=== PATIENT | female | born 1940 | race Caucasian/White ===

== ENCOUNTER → 2016-06-06 | Outpatient (CLI) | payer MEDICARE, OTHER ==
[~2016-06-06] MED LIST: ALDACTONE25 MG PO; ANASTROZOLE1 MG PO; ASPIR 8181 MG PO; CATAPRES 0.1MG0.1 MG PO; CORDARONE 200M200 MG PO; HYDRALAZINE HCL50 MG PO; LEVOTHYROXINE125 MCG PO; LORTAB 5-325 M1 EACH PO; NORVASC 5 MG TAB5 MG PO; PRADAXA 75 MG C75 MG PO; VITAMIN D250000 UNIT PO
== END ==
LOC: LAB 12:20
PROVIDERS: Internal Medicine Nephrology
DX: N18.3 Chronic kidney disease, stage 3 (moderate) (principal); M62.82 Rhabdomyolysis; E03.9 Hypothyroidism, unspecified
CPT/HCPCS: 36415; 80053; 82043; 82550; 82570; 84443; 89050

== ENCOUNTER 2016-07-14 07:43 | Emergency (ER) | payer MEDICARE, OTHER ==
[2016-07-14 08:42] LABS: HEMOGLOBIN 10.3 gm/dl (12.3-15.3); RED BLOOD COUNT 3.86 M/UL (4.00-5.10); WHITE BLOOD COUNT 5.6 K/UL (4.5-11.0)
== END 2016-07-14 15:05 | disposition home or self-care (01) ==
LOC: ER1 07:43
PROVIDERS: Physician Assistant
DX: R06.00 Dyspnea, unspecified (principal); R00.1 Bradycardia, unspecified; I48.91 Unspecified atrial fibrillation; I10 Essential (primary) hypertension; Z85.3 Personal history of malignant neoplasm of breast; Z90.49 Acquired absence of other specified parts of digestive tract; Z79.82 Long term (current) use of aspirin; Z79.899 Other long term (current) drug therapy
CPT/HCPCS: 36415; 71010; 80053; 82550; 82553; 83874; 83880; 84484; 85025; 93005; 99285

== ENCOUNTER 2020-05-22 09:54 | Outpatient (CLI) | payer MEDICARE, OTHER ==
[~2020-05-22 09:54] MED LIST changes: +ELIQUIS5 MG PO; +HYGROTON TAB 2525 MG PO; +LIVALO2 MG PO; +MELATONIN10 M2 PO; +PROTONIX40 MG PO; +TYLENOL 325MG325 MG PO
[2020-05-22 18:01] LABS: HEMOGLOBIN 8.9 gm/dl (12.3-15.3); RED BLOOD COUNT 3.66 M/UL (4.00-5.10); WHITE BLOOD COUNT 7.4 K/UL (4.5-11.0)
== END 2020-05-22 18:07 | disposition home or self-care (01) ==
LOC: OPSV 09:54
PROVIDERS: Internal Medicine
DX: D64.9 Anemia, unspecified (principal)
CPT/HCPCS: 36415; 36430; 85014; 85018; 85027; 86850; 86900; 86901; 86920; J7050; P9016

== ENCOUNTER → 2020-08-11 | Outpatient (CLI) | payer MEDICARE, OTHER | LOC: HEART 5 15:14 | DX: I48.91 Unspecified atrial fibrillation (principal); R42 Dizziness and giddiness ==

== ENCOUNTER → 2020-08-31 | Outpatient (CLI) | payer MEDICARE, OTHER ==
[2020-08-31 11:07] LABS: HEMOGLOBIN 7.2 gm/dl (12.3-15.3)
== END ==
LOC: OPSV 10:24
PROVIDERS: Internal Medicine
DX: D64.9 Anemia, unspecified (principal); I50.32 Chronic diastolic (congestive) heart failure
CPT/HCPCS: 36415; 36430; 85014; 85018; 86850; 86900; 86901; 86920; J7050; P9016

== ENCOUNTER → 2020-09-04 | Outpatient (CLI) | payer MEDICARE, OTHER | LOC: ECHO 09:36 | DX: I48.91 Unspecified atrial fibrillation (principal); I08.3 Combined rheumatic disorders of mitral, aortic and tricuspid valves; I27.20 Pulmonary hypertension, unspecified | CPT/HCPCS: ECHO; 93306 ==

== ENCOUNTER → 2020-09-04 | Outpatient (CLI) | payer MEDICARE, OTHER ==
[2020-09-04 13:08] LABS: RED BLOOD COUNT 4.17 M/UL (4.00-5.10); WHITE BLOOD COUNT 7.3 K/UL (4.5-11.0)
[2020-09-04 13:09] LABS: HEMOGLOBIN 9.8 gm/dl (12.3-15.3)
== END ==
LOC: LAB 12:28
PROVIDERS: Internal Medicine
DX: R58 Hemorrhage, not elsewhere classified (principal)
CPT/HCPCS: 36415; 85025

== ENCOUNTER 2020-10-15 00:20 | Emergency (ER) | payer MEDICARE, OTHER ==
[2020-10-15 01:10] LABS: HEMOGLOBIN 8.9 gm/dl (12.3-15.3); RED BLOOD COUNT 3.86 M/UL (4.00-5.10); WHITE BLOOD COUNT 6.1 K/UL (4.5-11.0)
[2020-10-15 01:37] LABS: BUN/CREATININE RATIO 14 (0-10)
[2020-10-15] MEDS ORDERED: LASIX TAB 20 MG20 MG PO (06:20)
== END 2020-10-15 06:26 | disposition home or self-care (01) ==
LOC: ER1 00:20
PROVIDERS: Physician Assistant
DX: E87.70 Fluid overload, unspecified (principal); R60.0 Localized edema; I50.9 Heart failure, unspecified; I48.91 Unspecified atrial fibrillation; Z90.49 Acquired absence of other specified parts of digestive tract
CPT/HCPCS: 71045; 80053; 81001; 82550; 82553; 83874; 83880; 84484; 85025; 93005; 96374; 99284; J1940

== ENCOUNTER → 2020-10-26 | Outpatient (CLI) | payer MEDICARE, OTHER ==
[~2020-10-26] MED LIST changes: +LASIX TAB 20 MG20 MG PO
== END ==
LOC: HEART 5 09:18
DX: R06.02 Shortness of breath (principal); I27.20 Pulmonary hypertension, unspecified; R94.2 Abnormal results of pulmonary function studies; Z79.899 Other long term (current) drug therapy
CPT/HCPCS: 94060; 94729

== ENCOUNTER → 2020-11-26 | Outpatient (CLI) | payer MEDICARE, OTHER ==
[2020-11-26 12:29] LABS: HEMOGLOBIN 7.4 gm/dl (12.3-15.3)
== END ==
LOC: OPSV 10:55
PROVIDERS: Internal Medicine
DX: D50.0 Iron deficiency anemia secondary to blood loss (chronic) (principal)
CPT/HCPCS: 36415; 36430; 85014; 85018; 86850; 86900; 86901; 86920; J7050; P9016

== ENCOUNTER 2021-01-16 12:10 | Inpatient (IN) | payer MEDICARE, OTHER ==
[~2021-01-16] VITALS: Ht 160 cm; Wt 79.4 kg
[2021-01-16 12:50] LABS: HEMOGLOBIN 12.9 gm/dl (12.3-15.3); RED BLOOD COUNT 4.43 M/UL (4.00-5.10); WHITE BLOOD COUNT 6.9 K/UL (4.5-11.0)
[2021-01-16] MEDS ORDERED: ELIQUIS2.5 MG PO (16:21)
[2021-01-16] MEDS ORDERED: NEXLIZET 180-11 EACH PO (16:21)
[2021-01-16] MEDS ORDERED: LEVOTHYROXINE112 MCG PO (16:22)
[2021-01-16] MEDS ORDERED: CARDIZEM 60MG T60 MG PO (16:23)
[2021-01-16] MEDS ORDERED: AMIODARONE HCL200 MG PO (16:23)
[2021-01-16] MEDS ORDERED: FERROUS SULFAT325 M2 PO (16:24)
[2021-01-16] MEDS ORDERED: CLOBETASOL PROP50 ML TOP (16:26)
[2021-01-16] MEDS ORDERED: NIZORAL 2% CREA15 GM TOP (16:27)
[2021-01-16] MEDS ORDERED: KETOCONAZOLE120 ML TOP (16:29)
[2021-01-17 08:33] LABS: HEMOGLOBIN 11.8 gm/dl (12.3-15.3); RED BLOOD COUNT 4.17 M/UL (4.00-5.10); WHITE BLOOD COUNT 6.3 K/UL (4.5-11.0)
[2021-01-17 09:15] LABS: BUN/CREATININE RATIO 13 (0-10)
[2021-01-18 07:36] LABS: HEMOGLOBIN 12.8 gm/dl (12.3-15.3); RED BLOOD COUNT 4.48 M/UL (4.00-5.10); WHITE BLOOD COUNT 7.6 K/UL (4.5-11.0)
[2021-01-18 11:15] LABS: ADENOVIRUS F 40/41 Not Detected (Negative); ASTROVIRUS Not Detected (Negative); CAMPYLOBACTER Not Detected (Negative); CRYPTOSPORIDIUM Not Detected (Negative); E.COLI 0157 Not Detected (Negative); ENTAMOEBA HISTOLYTICA Not Detected (Negative); ENTEROAGGREGATIVE E.COLI (EAEC Not Detected (Negative); ENTEROPATHOGENIC E.COLI (EPEC) Not Detected (Negative); ENTEROTOXIGENIC E.COLI (ETEC) Not Detected (Negative); GIARDIA LAMBLIA Not Detected (Negative); NOROVIRUS GI/GII Not Detected (Negative); PLESIOMONAS SHIGELLOIDES Not Detected (Negative); ROTOVIRUS A Not Detected (Negative); SALMONELLA Not Detected (Negative); SAPOVIRUS Not Detected (Negative); SHIG/ENTEROINVAS.ECOLI (EIEC) Not Detected (Negative); SHIGA-LIK TOX.PRO.E.COLI (STEC Not Detected (Negative); VIBRIO Not Detected (Negative); VIBRIO CHOLERAE Not Detected (Negative); YERSINIA ENTEROCOLITICA Not Detected (Negative)
[2021-01-18 14:05] LABS: CLOSTRIDIUM DIFFICILE TOX A/B DETECTED (Negative)
[2021-01-18 14:07] LABS: HEMOGLOBIN 11.9 gm/dl (12.3-15.3)
[2021-01-19 03:57] LABS: WHITE BLOOD COUNT 6.2 K/UL (4.5-11.0)
[2021-01-19 04:00] LABS: RED BLOOD COUNT 3.48 M/UL (4.00-5.10)
[2021-01-19 15:13] LABS: HEMOGLOBIN 12.2 gm/dl (12.3-15.3)
[2021-01-20 04:32] LABS: HEMOGLOBIN 10.7 gm/dl (12.3-15.3); RED BLOOD COUNT 3.69 M/UL (4.00-5.10); WHITE BLOOD COUNT 7.1 K/UL (4.5-11.0)
[2021-01-21 10:03] LABS: HEMOGLOBIN 9.6 gm/dl (12.3-15.3); RED BLOOD COUNT 3.37 M/UL (4.00-5.10); WHITE BLOOD COUNT 6.6 K/UL (4.5-11.0)
[2021-01-21] MEDS ORDERED: VANCOMYCIN HCL250 MG PO (10:05)
--- NOTE | 2021-01-21 15:58 | NUR ---
SPOKE WITH MIMI GUNTER LONG AFTER PATIENT DISCHARGE. INSTRUCTIONS GIVEN TO PATIENT. DAUGHTER STAYING WITH PATIENT HAD LEFT THE ROOM AND DID NOT WAIT FOR INSTRUCTIONS. LYRIC CONCERNED OVER MED CHANGES BY DR. SCHUMACHER. INSTRUCTED LYRIC TO SPEAK WITH DR. SCHUMACHER REGARDING HOME MEDS VS HOSPITAL MEDS. DAUGHTER LYRIC CONCERNED OVER PRE-CERT FOR VANCOMYCIN. INSTRUCTED UNAWARE OF PRE-CERT NEEDED. NO ASSOCIATE PROGRAMMER ANALYST INVOLVED WITH DISCHARGE. ATTEMPTED TO EXPLAIN TO MIMI GUNTER, MEDS LISTED, LYRIC THEN INFORMED NURSE SHE HAS NOT SEEN DISCHARGE INSTRUCTIONS. MIMI GUNTER LONG UPSET AT NURSE, COULD NOT APPEASE HER. LATE ENTRY :
== END 2021-01-21 14:42 | disposition home or self-care (01) | DRG 194 ==
LOC: ER1 12:10 → PROG CARE 15:03 → CDU 15:03 → PROG CARE 16:22
PROVIDERS: Emergency Medicine; Internal Medicine; Nurse Practitioner; ADMIT Internal Medicine
DX: J15.9 Unspecified bacterial pneumonia (principal); N17.9 Acute kidney failure, unspecified; I13.0 Hypertensive heart and chronic kidney disease with heart failure and stage 1 through stage 4 chronic kidney disease, or unspecified chronic kidney disease; I50.22 Chronic systolic (congestive) heart failure; I42.9 Cardiomyopathy, unspecified; K92.2 Gastrointestinal hemorrhage, unspecified; A04.72 Enterocolitis due to Clostridium difficile, not specified as recurrent; Z20.822 Contact with and (suspected) exposure to COVID-19; M25.562 Pain in left knee; E87.6 Hypokalemia; R00.1 Bradycardia, unspecified; I65.22 Occlusion and stenosis of left carotid artery; D63.1 Anemia in chronic kidney disease; I48.0 Paroxysmal atrial fibrillation; E03.9 Hypothyroidism, unspecified; N18.30 Chronic kidney disease, stage 3 unspecified; Z85.3 Personal history of malignant neoplasm of breast; Z90.49 Acquired absence of other specified parts of digestive tract; Z98.51 Tubal ligation status; Z88.8 Allergy status to other drugs, medicaments and biological substances; Z82.49 Family history of ischemic heart disease and other diseases of the circulatory system; Z83.6 Family history of other diseases of the respiratory system; Z90.12 Acquired absence of left breast and nipple; Z79.01 Long term (current) use of anticoagulants
CPT/HCPCS: ECHO; 36415; 71045; 71250; 73564; 80048; 80053; 81001; 82550; 82553; 83036; 83540; 83550; 83605; 83735; 83880; 84100; 84439; 84443; 84484; 85014; 85018; 85025; 85027; 85652; 86140; 87040; 87324; 87449; 87507; 93005; 93270; 93306; 99285; C9113; J2020; J2543; J3480; J7030; Q0177; U0002

== ENCOUNTER → 2021-02-17 | Outpatient (CLI) | payer MEDICARE, OTHER ==
[~2021-02-17] MED LIST changes: +AMIODARONE HCL200 MG PO; +CARDIZEM 60MG T60 MG PO; +CLOBETASOL PROP50 ML TOP; +ELIQUIS2.5 MG PO; +FERROUS SULFAT325 M2 PO; +KETOCONAZOLE120 ML TOP; +LEVOTHYROXINE112 MCG PO; +NEXLIZET 180-11 EACH PO; +NIZORAL 2% CREA15 GM TOP; +VANCOMYCIN HCL250 MG PO
== END ==
LOC: HEART 5 09:35
DX: R06.02 Shortness of breath (principal); Z79.899 Other long term (current) drug therapy; R94.2 Abnormal results of pulmonary function studies
CPT/HCPCS: 94060; 94729

== ENCOUNTER 2021-03-24 18:16 | Emergency (ER) | payer MEDICARE, OTHER ==
[2021-03-24] MEDS ORDERED: HYDROCODON-ACE1 EAC4 PO (20:38)
== END 2021-03-24 20:52 | disposition home or self-care (01) ==
LOC: ER1 18:16
DX: S90.01XA Contusion of right ankle, initial encounter (principal); S90.31XA Contusion of right foot, initial encounter; W20.8XXA Other cause of strike by thrown, projected or falling object, initial encounter; Y92.009 Unspecified place in unspecified non-institutional (private) residence as the place of occurrence of the external cause
CPT/HCPCS: 73600; 73620; 96372; 99283; J2270

== ENCOUNTER → 2021-05-26 | Outpatient (CLI) | payer MEDICARE, OTHER ==
[~2021-05-26] MED LIST changes: +HYDROCODON-ACE1 EAC4 PO
== END ==
LOC: EXRD 11:07
DX: N28.1 Cyst of kidney, acquired (principal)
CPT/HCPCS: 76775

== ENCOUNTER → 2021-10-25 | Outpatient (CLI) | payer MEDICARE, OTHER | LOC: US 11:00 | DX: Q61.02 Congenital multiple renal cysts (principal) ==

== ENCOUNTER → 2021-12-07 | Outpatient (CLI) | payer MEDICARE, OTHER | LOC: HEART 5 08:57 | DX: R06.02 Shortness of breath (principal); Z79.899 Other long term (current) drug therapy | CPT/HCPCS: 94060; 94729 ==